=== PATIENT | male | born 2000 | race Caucasian/White ===

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

== ENCOUNTER 2020-07-02 11:36 | Outpatient (RCR) | payer BC, SELFPAY | END 2020-09-14 23:59 | LOC: IMMUN 11:36 | PROVIDERS: PCP Pediatrics; Visit Provider Family Medicine | DX: Z23 Encounter for immunization (principal) | CPT/HCPCS: 0001A; 0002A; 91300 ==

== ENCOUNTER 2021-01-03 19:16 | Emergency (ER) | payer BC, SELFPAY ==
[2021-01-03 19:17] VITALS: BP 123/58; PULSE 110; RESP 18; TEMP 36.7; O2SAT 98; BMI 24.4
== END 2021-01-03 20:30 | disposition left against medical advice (07) ==
LOC: ED 20:42
PROVIDERS: PCP Pediatrics
DX: R56.9 Unspecified convulsions (principal); Z53.21 Procedure and treatment not carried out due to patient leaving prior to being seen by health care provider
CPT/HCPCS: 99281

== ENCOUNTER → 2021-03-14 14:28 | Outpatient (CLI) | payer BC, SELFPAY | PROVIDERS: PCP Pediatrics; Visit Provider Family Medicine | DX: Z23 Encounter for immunization (principal) ==